=== PATIENT | female | born 1965 | race Caucasian/White ===

== ENCOUNTER 2018-07-23 07:51 | Emergency (ER) | payer BC ==
[2018-07-23 08:09] VITALS: BP 113/63
--- NOTE | 2018-07-23 08:26 | UC ---
Eye Complaint HPI - HPI Summary HPI Summary: Pt presents with sudden onset of right eye pain, redness and discharge and eye "glued shut" in the morning this morning. - History of Current Complaint Chief Complaint: UCEye Stated Complaint: EYE IRRITATION Time Seen by Provider: 07/23/18 08:22 Hx Obtained From: Patient Hx Last Menstrual Period: 07/09/18 ?: No Onset/Duration: Sudden Onset Timing: Constant Severity Initially: Moderate Severity Currently: Mild Pain Intensity: 1 Character: Dull Associated Signs And Symptoms: Positive: Drainage (Purulent) - Risk Factors Penetrating Injury Risk Factor: Negative Globe Rupture Risk Factors: Negative Acute Glaucoma Risk Factors: Negative Optic Artery Occlusion Risk Factors: Negative - Allergies/Home Medications Allergies/Adverse Reactions: Allergies Allergy/AdvReac Type Severity Reaction Status Date / Time Penicillins Allergy Hives Verified 07/23/18 08:09 Sulfa (Sulfonamide Allergy Hives Verified 07/23/18 08:09 Antibiotics) Home Medications: Home Medications Ferrous Gluconate [Iron] 240 mg PO DAILY 07/23/18 [History Confirmed 07/23/18] L.acidoph,Paracasei, B.lactis [Probiotic] 1 each PO DAILY 07/23/18 [History Confirmed 07/23/18] Multivit with Iron,Minerals [Super Multiple] 1 each PO DAILY 07/23/18 [History Confirmed 07/23/18] PARoxetine HCl [Paxil] 10 mg PO DAILY 07/23/18 [History Confirmed 07/23/18] PMH/Surg Hx/FS Hx/Imm Hx Previously Healthy: Yes - Surgical History Surgical History: Yes Surgery Procedure, Year, and Place: eye surgery-las - Family History Known Family History: Positive: Cardiac Disease - Social History Occupation: Employed Full-time Lives: With Family Alcohol Use: Daily Substance Use Type: None Smoking Status (MU): Never Smoked Tobacco Have You Smoked in the Last Year: No - Immunization History Vaccination Up to Date: No Review of Systems All Other Systems Reviewed And Are Negative: Yes Constitutional: Positive: Negative Skin: Positive: Negative Eyes: Positive: Drainage - right, Eye Redness ENT: Positive: Negative Respiratory: Positive: Negative Cardiovascular: Positive: Negative Gastrointestinal: Positive: Negative Genitourinary: Positive: Negative Motor: Positive: Negative Neurovascular: Positive: Negative Musculoskeletal: Positive: Negative Neurological: Positive: Negative Psychological: Positive: Negative Is Patient Immunocompromised?: No Physical Exam Triage Information Reviewed: Yes Appearance: Well-Appearing Vital Signs: Initial Vital Signs Temp 99.1 F 07/23/18 08:03 Pulse 73 07/23/18 08:03 Resp 16 07/23/18 08:03 BP 113/63 07/23/18 08:03 Pulse Ox 100 07/23/18 08:03 Vital Signs Reviewed: Yes Eyes: Positive: Conjunctiva Inflamed ENT Exam: Normal Dental Exam: Normal Neck exam: Normal Respiratory Exam: Normal Respiratory: Positive: No respiratory distress Musculoskeletal Exam: Normal Neurological Exam: Normal Psychological Exam: Normal Skin Exam: Normal Eye Complaint Course/Dx - Differential Dx/Diagnosis Differential Diagnosis/HQI/PQRI: Conjunctivitis, Corneal Abrasion Provider Diagnosis: Conjunctivitis Discharge - Sign-Out/Discharge Documenting (check all that apply): Patient Departure All imaging exams completed and their final reports reviewed: No Studies - Discharge Plan Condition: Stable Disposition: HOME Prescriptions: Ofloxacin 0.3% (Eye Drop) [Ocuflox OPTH 0.3% (Eye Drop)] 2 drop RIGHT EYE Q4H 7 Days #1 btl Patient Education Materials: Conjunctivitis (ED) Referrals: Lana Alvares NP [Primary Care Provider] - If Needed Taz Danielle MD [Medical Doctor] - If Needed - Billing Disposition and Condition Condition: STABLE Disposition: Home
== END 2018-07-23 08:34 | disposition home or self-care (01) ==
LOC: UCCORT 07:51
DX: H10.9 Unspecified conjunctivitis (principal); Z88.0 Allergy status to penicillin; Z88.2 Allergy status to sulfonamides
CPT/HCPCS: 99202; G0463